=== PATIENT | male | born 1940 | race Caucasian/White ===

== ENCOUNTER 2018-03-13 12:04 | Day surgery (SDC) | payer BC ==
[~2018-03-13 12:04] MED LIST: CEFAZOLIN 2 GM/50 ML (PMX) 50 ML IVPB; LACTATED RINGER'S 1,000 ML IV*
[2018-03-13] MEDS ORDERED: LIDOCAINE 1% (MPF) 30 ML INJ ×2 (12:49→12:50)
[2018-03-13] MEDS ORDERED: ACETAMINOPHEN 1000MG/100ML IV 100 ML IVPB (13:00)
[2018-03-13] MEDS ORDERED: ONDANSETRON 4 MG INJ IV ×2 (13:00→14:00)
[2018-03-13] MEDS ORDERED: HYDROCODONE/APAP (5/325) TAB PO ×2 (13:00)
[2018-03-13] MEDS ORDERED: PROPOFOL 20 ML (13:11)
[2018-03-13] MEDS ORDERED: ACETAMINOPHEN 1000MG/100ML IV 100 ML (13:11)
[2018-03-13] MEDS ORDERED: MIDAZOLAM 1 MG/ML 2 ML INJ (13:11)
[2018-03-13] MEDS ORDERED: ONDANSETRON 4 MG INJ (13:12)
[2018-03-13] MEDS ORDERED: METOCLOPRAMIDE 10 MG INJ (13:12)
[2018-03-13] MEDS ORDERED: CEFAZOLIN 1 GM INJ (13:15)
[2018-03-13] MEDS ORDERED: FENTAnyl 50 MCG/ML VIAL (13:16)
[2018-03-13] MEDS: LIDOCAINE 1% (MPF) 30 ML INJ INJ (13:42)
[2018-03-13] MEDS: TRIAMCINOLONE ACET 40 MG/ML INJ (13:42)
[2018-03-13] MEDS ORDERED: DIPHENHYDRAMINE 50 MG INJ IV (14:00)
[2018-03-13] MEDS ORDERED: HYDROmorphONE (0.2 MG/ML) 10ML SYG IV ×3 (14:00)
[2018-03-13] MEDS ORDERED: MEPERIDINE 25 MG INJ IV (14:00)
== END 2018-03-13 16:10 | disposition home or self-care (01) ==
LOC: SDS 12:04
DX: M23.221 Derangement of posterior horn of medial meniscus due to old tear or injury, right knee (principal); M94.261 Chondromalacia, right knee; E78.5 Hyperlipidemia, unspecified; E03.9 Hypothyroidism, unspecified
CPT/HCPCS: 29881